=== PATIENT | female | born 2000 | race Caucasian/White ===

== ENCOUNTER → 2020-01-26 10:39 | Outpatient (BNVA) | payer MEDICAID, SELFPAY | PROVIDERS: Visit Provider Nurse Practitioner Women's Health | DX: Z34.90 Encounter for supervision of normal pregnancy, unspecified, unspecified trimester (principal) | CPT/HCPCS: 80053; 81000; 87077; 87086; 87184 ==

== ENCOUNTER → 2020-02-09 11:47 | Outpatient (BNVA) | payer MEDICAID, SELFPAY | PROVIDERS: Visit Provider Obstetrics & Gynecology | DX: Z34.01 Encounter for supervision of normal first pregnancy, first trimester (principal) | CPT/HCPCS: 80307; 81000; 85027; 86592; 86762; 86803; 86850; 86900; 87340; 87806 ==

== ENCOUNTER → 2020-02-24 09:07 | Outpatient (BNVA) | payer MEDICAID, SELFPAY | PROVIDERS: Visit Provider Obstetrics & Gynecology | DX: Z34.01 Encounter for supervision of normal first pregnancy, first trimester (principal) | CPT/HCPCS: 81000; 87491; 87591 ==

== ENCOUNTER → 2020-03-29 13:25 | Outpatient (BNVA) | payer BC, MEDICAID, SELFPAY | PROVIDERS: Visit Provider Nurse Practitioner Women's Health | DX: O99.891 Other specified diseases and conditions complicating pregnancy (principal); R82.71 Bacteriuria; A74.9 Chlamydial infection, unspecified; O98.811 Other maternal infectious and parasitic diseases complicating pregnancy, first trimester; Z3A.00 Weeks of gestation of pregnancy not specified | CPT/HCPCS: 84315; 87077; 87086; 87184; 87491; 87591 ==

== ENCOUNTER → 2020-04-19 13:02 | Outpatient (BNVA) | payer MEDICAID, SELFPAY | PROVIDERS: Visit Provider Obstetrics & Gynecology | DX: Z34.92 Encounter for supervision of normal pregnancy, unspecified, second trimester (principal) | CPT/HCPCS: 76805 ==

== ENCOUNTER → 2020-04-21 13:07 | Outpatient (BNVA) | payer BC, MEDICAID, SELFPAY | PROVIDERS: Visit Provider Obstetrics & Gynecology | DX: O99.891 Other specified diseases and conditions complicating pregnancy (principal); R82.71 Bacteriuria; O99.612 Diseases of the digestive system complicating pregnancy, second trimester; K21.9 Gastro-esophageal reflux disease without esophagitis | CPT/HCPCS: 81000; 87086 ==

== ENCOUNTER → 2020-05-18 10:25 | Outpatient (BNVA) | payer BC, MEDICAID, SELFPAY | PROVIDERS: Visit Provider Obstetrics & Gynecology | DX: Z34.90 Encounter for supervision of normal pregnancy, unspecified, unspecified trimester (principal) | CPT/HCPCS: 81000 ==

== ENCOUNTER → 2020-06-12 12:02 | Outpatient (BNVA) | payer BC, MEDICAID, SELFPAY | PROVIDERS: Visit Provider Obstetrics & Gynecology | DX: O99.891 Other specified diseases and conditions complicating pregnancy (principal); R82.71 Bacteriuria | CPT/HCPCS: 81000; 82950; 85027; 87086 ==

== ENCOUNTER → 2020-06-26 14:43 | Outpatient (BNVA) | payer BC, MEDICAID, SELFPAY | PROVIDERS: Visit Provider Obstetrics & Gynecology | DX: Z34.03 Encounter for supervision of normal first pregnancy, third trimester (principal) | CPT/HCPCS: 81000; 87077; 87086; 87184 ==

== ENCOUNTER → 2020-07-13 08:02 | Outpatient (BNVA) | payer BC, MEDICAID, SELFPAY | PROVIDERS: Visit Provider Obstetrics & Gynecology | DX: Z34.90 Encounter for supervision of normal pregnancy, unspecified, unspecified trimester (principal) | CPT/HCPCS: 81000 ==

== ENCOUNTER → 2020-07-25 14:35 | Outpatient (BNVA) | payer BC, MEDICAID, SELFPAY | PROVIDERS: Visit Provider Nurse Practitioner Women's Health | DX: O99.612 Diseases of the digestive system complicating pregnancy, second trimester (principal); K21.9 Gastro-esophageal reflux disease without esophagitis; R82.71 Bacteriuria; O98.811 Other maternal infectious and parasitic diseases complicating pregnancy, first trimester; A74.9 Chlamydial infection, unspecified; Z3A.00 Weeks of gestation of pregnancy not specified | CPT/HCPCS: 81000; 87086 ==

== ENCOUNTER → 2020-08-07 13:48 | Outpatient (BNVA) | payer BC, MEDICAID, SELFPAY | PROVIDERS: Visit Provider Obstetrics & Gynecology | DX: O98.811 Other maternal infectious and parasitic diseases complicating pregnancy, first trimester (principal); A74.9 Chlamydial infection, unspecified; Z3A.00 Weeks of gestation of pregnancy not specified | CPT/HCPCS: 81000; 87081; 87491; 87591; 87661 ==

== ENCOUNTER 2020-08-14 13:40 | Outpatient (CLI) | payer BC, MEDICAID, SELFPAY ==
[2020-08-14 14:09] VITALS: BP 144/77; PULSE 91
[2020-08-14 14:16] LABS: Basophils # 0.1 10^3/uL (0.0-0.1); Basophils % 0.4 %; Eosinophils # 0.2 10^3/uL (0.0-0.8); Eosinophils % 1.3 %; Hematocrit 34.1 % (37.0-47.0); Hemoglobin 11.1 g/dL (11.5-15.3); Lymphocytes # 1.8 10^3/uL (1.5-6.5); Lymphocytes % 14.3 %; Mean Corpuscular HGB Conc 32.6 g/dL (30.0-36.0); Mean Corpuscular Volume 85.9 fL (81-99); Mean Platelet Volume 9.5 fL (7.4-10.4); Monocytes # 1.2 10^3/uL (0.2-0.9); Monocytes % 9.6 %; Neutrophils # 9.05 10^3/uL (1.8-8.0); Neutrophils % 72.7 %; Nucleated Red Blood Cells % 0 %; Platelet Count 428 10^3/cmm (130-400); Red Blood Count 3.97 10^6/uL (4.1-5.3); Red Cell Distribution Width 13.1 % (12.1-15.1); White Blood Count 12.4 10^3/uL (4.5-13.0)
[2020-08-14 14:19] LABS: Add Urine Microscopic? YES; Bilirubin Urine Neg (Negative); Blood Urine Neg (Negative); Glucose Urine UA Norm (Normal); Ketones Urine Negative (Negative); Leukocyte Esterase Urine 2+ (Negative); Nitrate Urine Negative (Negative); Protein Urine Neg (Negative); Urine Appearance SL Hazy (CLEAR); Urine Color Yellow (Yellow); Urobilinogen Urine Norm (Negative); pH Urine 7 (5-7)
[2020-08-14 14:24] VITALS: BP 142/74; PULSE 82
[2020-08-14 14:24] LABS: Bacteria Urine 3+ /hpf; Squamous Epithelial Cell Urine 0-4 /hpf (0-5)
[2020-08-14 14:25] LABS: RBC Urine 0-4 /hpf (0-2)
[2020-08-14 14:27] LABS: Add Urine Culture? Yes
[2020-08-14 14:28] VITALS: BMI 35.0
[2020-08-14 14:33] VITALS: RESP 16; TEMP 36.3
[2020-08-14 14:35] LABS: Alanine Aminotransferase 13 U/L (0-33); Albumin Level 3.8 g/dL (3.5-5.2); Alkaline Phosphatase 158 IU/L (35-105); Anion Gap 18.3 (5-19); Aspartate Amino Transferase 11 U/L (0-32); Blood Urea Nitrogen 4 mg/dL (6-20); Calcium 9.2 mg/dL (8.5-10.5); Carbon Dioxide 19 mmol/L (22-29); Chloride 103 mmol/L (98-107); Globulin 3.4 g/dL (1.3-4.6); Glomerular Filtration Rate 286.6 mL/min (90-130); Glucose 83 mg/dL (65-115); Osmolality Calculated 278 mOsm/kg (285-295); Potassium 4.3 mmol/L (3.5-5.1); Sodium 136 mmol/L (136-145); Total Bilirubin 0.2 mg/dL (0.15-1.2); Total Protein 7.2 g/dL (6.6-8.7); Uric Acid 2.6 mg/dL (2.4-5.7)
[2020-08-14 14:39] VITALS: BP 140/73; PULSE 86
[2020-08-14 14:42] LABS: UPRO/UCREAT Ratio 0.19 mg/mg CR; Urine Creatinine 77 mg/dL (28-217); Urine Protein Random 15 mg/dL
[2020-08-14 14:54] VITALS: BP 140/73; PULSE 80
--- NOTE | 2020-08-14 14:59 | PC.NURSE ---
Explained bedrest order to patient and patient's mother. They verbalized understanding and will return for NST. Also discussed checking blood pressures at home and patient and mother states they would not be able to do that at this time.
== END 2020-08-14 14:58 | disposition home or self-care (01) ==
LOC: OPOB 13:50 → OBGYN 13:50
PROVIDERS: Visit Provider Obstetrics & Gynecology
DX: O26.899 Other specified pregnancy related conditions, unspecified trimester (principal); Z3A.00 Weeks of gestation of pregnancy not specified; Z03.89 Encounter for observation for other suspected diseases and conditions ruled out
CPT/HCPCS: 36415; 59025; 80053; 81000; 81001; 82570; 84156; 84550; 85025; 87086; 99211

== ENCOUNTER 2020-08-17 10:57 | Outpatient (CLI) | payer BC, MEDICAID, SELFPAY ==
[2020-08-17 11:13] VITALS: BP 128/76; PULSE 107; TEMP 36.3
[2020-08-17 11:17] VITALS: BMI 34.1
[2020-08-17 11:28] VITALS: BP 124/72; PULSE 105
[2020-08-17 11:43] VITALS: BP 117/65; PULSE 108
== END 2020-08-17 11:45 | disposition home or self-care (01) ==
LOC: OPOB 11:06 → OBGYN 11:09
PROVIDERS: Visit Provider Obstetrics & Gynecology
DX: O26.899 Other specified pregnancy related conditions, unspecified trimester (principal); Z3A.00 Weeks of gestation of pregnancy not specified
CPT/HCPCS: 59025; 99211

== ENCOUNTER → 2020-08-24 09:42 | Outpatient (BNVA) | payer BC, MEDICAID, SELFPAY | PROVIDERS: Visit Provider Obstetrics & Gynecology | DX: Z34.03 Encounter for supervision of normal first pregnancy, third trimester (principal) | CPT/HCPCS: 81000; 87635 ==

== ENCOUNTER 2020-08-25 12:38 | Inpatient (IN) | payer BC, MEDICAID, SELFPAY ==
[2020-08-25] VITALS (7 sets, daily range): BP systolic 118–128; BP diastolic 69–84; PULSE 86–102; RESP 18; BMI 33.9
[2020-08-25] MEDS: ampicillin 2,000 MG in sodium chloride 0.9% (plus) 50 ML 100 MG IV (13:39)
[2020-08-25] MEDS: miSOPROStol 100 mcg tablet 25 MCG VAGINAL (13:40)
[2020-08-25] MEDS: dextrose 5%-lactated ringers 1,000 ML 125 ML IV (13:40)
[2020-08-25 15:26] LABS: Basophils # 0.1 10^3/uL (0.0-0.1); Basophils % 0.4 %; Eosinophils # 0.2 10^3/uL (0.0-0.8); Eosinophils % 1.7 %; Hematocrit 34.7 % (37.0-47.0); Hemoglobin 11.3 g/dL (11.5-15.3); Lymphocytes # 1.8 10^3/uL (1.5-6.5); Mean Corpuscular HGB Conc 32.6 g/dL (30.0-36.0); Mean Corpuscular Volume 85.9 fL (81-99); Mean Platelet Volume 10.2 fL (7.4-10.4); Monocytes # 1.1 10^3/uL (0.2-0.9); Neutrophils # 8.76 10^3/uL (1.8-8.0); Neutrophils % 72.6 %; Nucleated Red Blood Cells % 0 %; Platelet Count 461 10^3/cmm (130-400); Red Blood Count 4.04 10^6/uL (4.1-5.3); Red Cell Distribution Width 13.3 % (12.1-15.1); White Blood Count 12.1 10^3/uL (4.5-13.0)
[2020-08-25] MEDS: ampicillin 1,000 MG in sodium chloride 0.9% (plus) 50 ML 100 MG IV ×2 (19:09→23:14)
[2020-08-26] VITALS (86 sets, daily range): BP systolic 107–154; BP diastolic 58–100; PULSE 75–136; RESP 15–18; TEMP 36.2–36.7; O2SAT 96–98
[2020-08-26] MEDS: ampicillin 1,000 MG in sodium chloride 0.9% (plus) 50 ML 100 MG IV ×6 (02:34→21:01)
[2020-08-26] MEDS: oxytocin 30 UNIT/500 ML BAG IV (08:46)
--- NOTE | 2020-08-26 15:36 | P.PN_ITS ---
WOUND CARE COORDINATOR Subjective Subjective: Interval history: The patient had an EASI cath placed overnight. I was unable to use any sort of medication due to uterine hyperstimulation after one dose of cytotec. The catheter came out on its own this morning. Pitocin was begun. She has reached 5 cm dilation and AROM performed with light meconium stained fluid. Labor: Pain Control: tolerating well Dilation (cm): 5 Effacement (%): 80 Station: -1 Amniotic Membrane Status: Ruptured Monitor Mode: External Contraction Pattern: Regular Contraction Intensity: Moderate Status: Category I Vitals/I&O/Wt Last Vital Signs Pulse 98 08/26/20 15:15 Resp 18 08/26/20 13:23 BP 129/78 08/26/20 15:15 08/26/20 08/26/20 08/26/20 06:59 14:59 22:59 Intake Total 150 / 200 1061.267 / 1061.267 Balance 150 / 200 1061.267 / 1061.267 Weight last 48 hrs Weight 204 lb Physical Exam Narrative: EXAM NARRATIVE: The patient is needing to breath through contractions. Epidural has been ordered. Resp: COMMON NORMALS: normal respiratory effort EFFORT & INSPECTION: Yes able to speak in complete sentences Extremity: COMMON NORMALS: no clubbing, cyanosis or edema Data : 08/25/20 13:08 A&P Assessment and plan (1) GBS (group B Streptococcus carrier), +RV culture, currently : Status: Acute (2) Supervision of normal : continue with induction anticipate Status: Acute Qualifiers: Normal : normal first Trimester: third [facility] Qualified Code(s): Z34.03 - Encounter for supervision of normal first , third trimester Attestations Medical Necessity Statement*: she has been admitted in patient Coding Level of Care Code Acute Medical Auditor for Chg Fwd Diagnoses GBS (group B Streptococcus carrier), +RV culture, currently O99.820 Supervision of normal Z34.03 Normal : normal first Trimester: third trimester
[2020-08-26] MEDS: lactated ringers 1,000 ML 999 ML IV (15:46)
--- NOTE | 2020-08-26 16:45 | P.ANES_ITS ---
Anesthesia Procedures Procedure/Date: 08/26/20 Epidural: Time Out Performed: Yes Consents Signed: Procedure Consent Consent: from patient Lumbar Level: L2-L3 Epidural position: sitting Epidural procedure: sterile prep of area, 1% lidocaine to numb the area (5ml), 18 g needle, negative for paresthesia passed, test dose given (3ml), 1.5% xyloca ine 1:200k epi (3ml), placed PCEA, no systemic response, sterile dressing applied, L.U.D. no apparent complications and 0.2% Ropiavacaine @ mls/hr (13ml) Additional Comments: consent obtained. Sterile prep and drape. Loss of resistance, cath placed easily. Tolerated well. Neg test dose.
--- NOTE | 2020-08-26 16:48 | ANES.PREANE2 ---
Pre-Anesthetic Assessment Pre-Anesthetic Assessment: Height/Weight: Height 1.65 m Weight 92.533 kg Pulse Resp BP Pulse Ox 108 H 18 123/72 98 08/26/20 16:44 08/26/20 13:23 08/26/20 16:44 08/26/20 16:39 Preop Diagnosis: labor pain Proposed Procedure: labor epidural Was Beta Chris taken within 24 hours: N/A Was Clonidine taken within 24 hours: N/A Social: Social History: No alcohol and No tobacco Exam: Pre-Anes Outpt Exam: alert and oriented x 3 Airway: Submandibular: WNL Cervical ROM: WNL MP: 1 History/ROS: No significant history except as noted GI: GI: GERD Anesthetic Plan: ASA status: 2 Anesthesia: Anesthesia Evaluation and Regional (specify below) Other: labor epidural Risk of > 500 ml blood loss (7ml/kg in children): No Meds/Allergies Current Medications: Current Medications Generic Name Dose Route Start Last Admin Trade Name Freq PRN Reason Stop Dose Admin Dextrose/Lactated Ringer's 1,000 mls @ 125 m ls/hr 08/25/20 13:00 08/26/20 07:40 Dextrose 5%-Lact ated Ringers IV Infused .Q8H ANNA Infusion Ampicillin Sodium 1,000 mg/ 50 mls @ 100 mls/ hr 08/25/20 17:00 08/26/20 13:27 Sodium Chloride IV 100 mls/hr Q4H ANNA Administration Protocol Oxytocin 30 unit in 500 ml s @ 1 mls/hr 08/26/20 08:45 08/26/20 12:25 Pitocin IV 6 milliunit/min .Q24H ANNA 6 mls/hr Titration Protocol 1 MILLIUNIT/MIN PFSH Anesthesia PFSH: Medical History No pertinent past medical history neghx: htn,dm,thyroid,dvt/pe, herpes ----denies partner with herpes Surgical History No pertinent past surgical history Family History Grandmother Breast cancer Maternal grandmother--- dx age unknown Diabetes Maternal grandmother Denies family history of Colon cancer Ovarian cancer Heart disease Bleeding disorder Hypertension Uterine cancer Thyroid disease Stroke Social History Smoking and tobacco status: never smoked Alcohol intake: never Additional social history: - Tobacco use: Denies Alcohol use: Denies Drug use: Denies Female Reproductive History: : 1 Data Anesthesia CBC & Chem 7: 08/25/20 13:08 Other Labs: Laboratory Results - last 48 hr 08/25/20 13:08 WBC 12.1 RBC 4.04 L Hgb 11.3 L Hct 34.7 L MCV 85.9 MCH 28.0 MCHC 32.6 RDW 13.3 Plt Count 461 H MPV 10.2 Neut % (Auto) 72.6 Lymph % (Auto) 15.0 [place] % (Auto) 9.0 Eos % (Auto) 1.7 Baso % (Auto) 0.4 Neut # (Auto) 8.76 H Lymph # (Auto) 1.8 [place] # (Auto) 1.1 H Eos # (Auto) 0.2 Baso # (Auto) 0.1 Nucleated RBC % (auto) 0 Nucleated RBCs # 0.0 Cardiac Studies: No Data to Display
--- NOTE | 2020-08-26 17:20 | PC.NURSE ---
Patient still complaining of pain, Janki notified and stated they would come assess epidural.
[2020-08-26] MEDS: dextrose 5%-lactated ringers 1,000 ML 125 ML IV (17:35)
[2020-08-26] MEDS: miSOPROStol 200 mcg Tablet 800 MCG PR (22:59)
[2020-08-27] VITALS (26 sets, daily range): BP systolic 112–155; BP diastolic 57–86; PULSE 75–113; RESP 15–16; TEMP 36.2–36.7
[2020-08-27] MEDS: benzocaine-menthol 78 gm Canister 1 SPRAY TOPICAL (00:45)
--- NOTE | 2020-08-27 01:05 | PM.DELIVERY ---
Delivery Note: Date of delivery: August 27, 2020 Pre-delivery diagnoses: iup at 39 3/7 weeks, GBBS + Post-delivery diagnoses: same with shoulder dystocia Procedure: Op report anesthesia: Epidural Delivering Physician: dana Estimated blood loss (mL): 50 Findings: term female in the MELIA presentation with a 1 minute shoulder dystocia Broken umbilical cord after delivery. Pre-Delivery Course: The patient was admitted for induction at term at her request. Delivery: The patient had complete cervical dilation and began to push. The head delivered in the MELIA position over an intact perineum under epidural anesthesia. The head immediately turtled as it was emerging. The patient was placed in Teresa position and I attempted to free the anterior shoulder. I then attempted to deliver the posterior arm, but it was behind the babies back. Next I again attempted to deliver the anterior shoulder and it delivered, followed by the posterior shoulder and the remainder of the baby. As I turned the baby over to suction the nose and mouth, the cord ruptured. The nurse and I both grasped the cord to minimize the bleeding. A cord clamp was placed. The baby was placed onto the mother's abdomen. The placenta delivered spontaneously. It was inspected and found to be intact. Inspection of the perineum revealed bilateral periurethral lacerations that were hemostatic. Estimated blood loss 50 mL. Apgars on baby were 7 at 1 minute and 8 at 5 minutes. Weight of baby is 8 pounds 4 ounces. Mother and baby were stable post delivery. Post-Delivery Status: Baby had copious amounts of fluid delee suctioned from her. She was placed on C-pap and stabilized. She is doing well and with her mother. A&P Assessment and plan (1) GBS (group B Streptococcus carrier), +RV culture, currently : Status: Acute (2) Supervision of normal : Status: Acute Qualifiers: Normal : normal first Trimester: third trimester Qualified Code(s): Z34.03 - Encounter for supervision of normal first , third trimester Coding Level of Care Code Acute Business Center Representative for Chg Fwd Diagnoses GBS (group B Streptococcus carrier), +RV culture, currently O99.820 Supervision of normal Z34.03 Normal : normal first Trimester: third trimester
[2020-08-27] MEDS: prenatal vitamin Capsule 1 CAP PO (08:12)
[2020-08-27] MEDS: docusate sodium 100 mg Capsule PO ×2 (08:12→18:29)
[2020-08-27] MEDS: ibuprofen 800 mg tablet PO ×3 (08:23→20:25)
--- NOTE | 2020-08-27 09:22 | PM.PN ---
Subjective Subjective: Interval history: The patient and baby are doing well this am. She is having normal lochia, pain is well controlled. She is ambulating and tolerating a regular diet. Medications: Reviewed: Yes Vitals/I&O/Wt Last Vital Signs Temp 98.0 F 08/27/20 06:45 Pulse 93 08/27/20 08:18 Resp 15 08/27/20 06:45 BP 121/70 08/27/20 08:18 Pulse Ox 97 08/26/20 19:25 08/26/20 08/27/20 08/27/20 22:59 06:59 14:59 Intake Total 262.8 / 0336.160 5799.933 / 2826.000 Output Total 600 / 600 900 / 1500 Balance -337.2 / 774.067 551.933 / 1326.000 Weight last 48 hrs Weight 204 lb Physical Exam Const: COMMON NORMALS: no acute distress, average body habitus, patient oriented x3, no limitations, healthy appearing, alert and well nourished GENERAL APPEARANCE: cooperative, comfortable, well kempt and well developed ORIENTATION/CONSCIOUSNESS: Yes awake, Yes oriented to person, Yes oriented to place and Yes oriented to time Neck/C-Spine: COMMON NORMALS: full ROM and supple Resp: COMMON NORMALS: normal respiratory effort EFFORT & INSPECTION: Yes able to speak in complete sentences GI: COMMON NORMALS: Soft to palpation and non-tender PALPATION: Yes Soft to palpation Extremity: COMMON NORMALS: no clubbing, cyanosis or edema and no calf tenderness Neuro: COMMON NORMALS: patient oriented x3 SENSORIUM/ORIENTATION: Yes alert, Yes oriented to person, Yes oriented to place and Yes oriented to time Psych: COMMON NORMALS: mental status grossly normal, Normal thought process present, cooperative, normal affect and speech normal APPEARANCE: Yes grossly normal and Yes well kempt ATTITUDE: Yes calm and Yes engaged ACTIVITY/MOTOR BEHAVIOR: Yes appropriate eye contact SPEECH: Yes normal speech THOUGHT PROCESS: Normal thought process present Urinary Catheter Management^: Huynh: Cath Placed During This Visit: yes, but has since been removed by the nurse Reason for Continuing Indwelling Catheter: Other Urinary Catheter Date of Insertion: 08/26/20 Urinary Catheter Time of Insertion: 16:49 Date Urinary Catheter Removed: 08/26/20 Time Urinary Catheter Discontinued: 22:44 Data : 08/25/20 13:08 A&P Assessment and plan (1) GBS (group B Streptococcus carrier), +RV culture, currently : doing well plan for discharge tomorrow Status: Acute (2) Supervision of normal : Status: Acute Qualifiers: Normal : normal first Trimester: third trimester Qualified Code(s): Z34.03 - Encounter for supervision of normal first , third trimester Attestations Medical Necessity Statement*: The patient had a vaginal delivery. she has already been here greater than two midnights. Coding Level of Care Code Acute Ophthalmic Technician Apprentice for Chg Fwd Diagnoses GBS (group B Streptococcus carrier), +RV culture, currently O99.820 Supervision of normal Z34.03 Normal : normal first Trimester: third trimester
[2020-08-27 12:10] LABS: Hematocrit 31.1 % (37.0-47.0); Hemoglobin 10.1 g/dL (11.5-15.3); Mean Corpuscular HGB Conc 32.5 g/dL (30.0-36.0); Mean Corpuscular Hemoglobin 27.8 pg (28.0-34.0); Mean Corpuscular Volume 85.7 fL (81-99); Mean Platelet Volume 9.7 fL (7.4-10.4); Platelet Count 353 10^3/cmm (130-400); Red Blood Count 3.63 10^6/uL (4.1-5.3); Red Cell Distribution Width 13.8 % (12.1-15.1)
[2020-08-28 04:00] VITALS: BP 120/75; PULSE 72; RESP 15; TEMP 36.6; O2SAT 97
--- NOTE | 2020-08-28 08:20 | PM.DCS ---
Discharge Providers Date of Admission: 08/26/20 08:30 Date of Discharge: August 28, 2020 Attending Provider at Admission: Nicol Sparrow MD Attending Provider at Discharge: Nicol Sparrow MD Diagnoses at Discharge Discharge Diagnosis (1) GBS (group B Streptococcus carrier), +RV culture, currently : Status: Acute (2) Supervision of normal : Status: Acute Qualifiers: Normal : normal first Trimester: third trimester Qualified Code(s): Z34.03 - Encounter for supervision of normal first , third trimester Reason for Visit Reason for Visit: INDUCTION Hospital Course Hospital Course: The patient was admitted for induction at term, per patient request. She had spontaneous vaginal delivery. she did well and was ready for discharge on day #2 Physical Exam Narrative: EXAM NARRATIVE: The patient doing well this am. She doesn't have any complaints Resp: COMMON NORMALS: normal respiratory effort EFFORT & INSPECTION: Yes able to speak in complete sentences GI: COMMON NORMALS: Soft to palpation and non-tender PALPATION: Yes Soft to palpation Extremity: COMMON NORMALS: no clubbing, cyanosis or edema and no calf tenderness Psych: COMMON NORMALS: mental status grossly normal, Normal thought process present, cooperative, normal affect, speech normal and activity/motor behavior normal APPEARANCE: Yes grossly normal ATTITUDE: Yes calm and Yes engaged ACTIVITY/MOTOR BEHAVIOR: Yes appropriate eye contact SPEECH: Yes normal speech THOUGHT PROCESS: Normal thought process present Urinary Catheter Management^: Huynh: Cath Placed During This Visit: yes, but has since been removed by the nurse Reason for Continuing Indwelling Catheter: Other Urinary Catheter Date of Insertion: 08/26/20 Urinary Catheter Time of Insertion: 16:49 Date Urinary Catheter Removed: 08/26/20 Time Urinary Catheter Discontinued: 22:44 Discharge Data Data Completed and Pending: Labs from last 24 hours 08/27/20 11:45 WBC 15.0 H RBC 3.63 L Hgb 10.1 L Hct 31.1 L MCV 85.7 MCH 27.8 L MCHC 32.5 RDW 13.8 Plt Count 353 MPV 9.7 Vitals: Last Vital Signs Temp 97.9 F 08/28/20 04:00 Pulse 72 08/28/20 04:00 Resp 15 08/28/20 04:00 BP 120/75 08/28/20 04:00 Pulse Ox 97 08/28/20 04:00 Discharge Plan Discharge Patient Disposition: Home Condition: Stable Prescriptions: Continued prenat.vits,noble,[id number] Tablet 1 tab PO DAILY Qty: 90 RF: 3 ferrous sulfate 325 mg (65 mg iron) tablet 325 mg PO BID Qty: 60 RF: 5 omeprazole 20 mg capsule,delayed release(DR/EC) 20 mg PO DAILY Qty: 30 RF: 3 Discharge Orders: Discharge Order (Routine); Ordered 08/28/20 Ordered By: Nicol Sparrow Referrals: Nicol Sparrow MD [Physician] - 6 Weeks (Please keep scheduled appointment on September 11, 2020 at 12:45 pm for mom's 2 week check up and on October 09, 2020 at 12:45 pm for 6 week follow up, both with Dr. Sparrow. ) Discharge Diet: Regular Discharge Activity: Limit activity as instructed Patient Instructions: Vitamins (By mouth), Pre-eclampsia and Eclampsia (DC), OB Discharge Report, OB Food/Drug Interaction Guide, Opioid Safety, OB Proud Parent Packet, OB Vaginal Deliveries - [facility], Abnormal Bleeding Discharge Attestations Time Spent in Discharge Care*: less than 30 min Quality Metrics Clinical Quality Measures During this hospital stay, did patient experience: None Coding Level of Care Code Acute Chg FW DC note Exam Expanded Problem Focused Diagnoses GBS (group B Streptococcus carrier), +RV culture, currently O99.820 Supervision of normal Z34.03 Normal : normal first Trimester: third trimester
[2020-08-28] MEDS: benzocaine-menthol 78 gm Canister 1 SPRAY TOPICAL (08:47)
[2020-08-28] MEDS: docusate sodium 100 mg Capsule PO (08:48)
[2020-08-28] MEDS: prenatal vitamin Capsule 1 CAP PO (08:48)
[2020-08-28] MEDS: pantoprazole DR 40 mg Tablet PO (08:48)
[2020-08-28] MEDS: ibuprofen 800 mg tablet PO (08:48)
[2020-08-28 11:00] VITALS: BP 127/83; PULSE 65; RESP 18; TEMP 36.7; O2SAT 98
[2020-08-28 12:32] VITALS: BP 125/78; PULSE 93; RESP 15; TEMP 36.6
== END 2020-08-28 12:37 | disposition home or self-care (01) | DRG 807 ==
PROVIDERS: Admitting Provider Obstetrics & Gynecology; Visit Provider Obstetrics & Gynecology
DX: O99.824 Streptococcus B carrier state complicating childbirth (principal); Z37.0 Single live birth; O66.0 Obstructed labor due to shoulder dystocia; O77.0 Labor and delivery complicated by meconium in amniotic fluid; O99.02 Anemia complicating childbirth; D64.9 Anemia, unspecified; Z3A.39 39 weeks gestation of pregnancy; O75.89 Other specified complications of labor and delivery; K21.9 Gastro-esophageal reflux disease without esophagitis
CPT/HCPCS: 36415; 51702; 59409; 85025; 85027; G0378; G0379; J0290; J2795

== ENCOUNTER → 2021-06-12 15:07 | Outpatient (BNVA) | payer BC, MEDICAID, SELFPAY | PROVIDERS: PCP Registered Nurse; Referring Provider Nurse Practitioner Family; Visit Provider Surgery | DX: K82.9 Disease of gallbladder, unspecified (principal); Z20.822 Contact with and (suspected) exposure to COVID-19 | CPT/HCPCS: 87635 ==

== ENCOUNTER 2021-06-21 07:31 | Day surgery (SDC) | payer BC, MEDICAID, SELFPAY ==
[2021-06-15 16:38] VITALS: BMI 27.3
[2021-06-21] VITALS (10 sets, daily range): BP systolic 104–132; BP diastolic 69–90; PULSE 56–109; RESP 16–22; TEMP 36.1–36.5; O2SAT 98–100
[2021-06-21 07:54] LABS: OR HCG Qualitative Urine Negative (Negative)
[2021-06-21] MEDS: sodium chloride 0.9% 1,000 ML 30 ML IV ×2 (07:59→09:30)
--- NOTE | 2021-06-21 08:00 | P.ANESASSM_ITS ---
Pre-Anesthetic Assessment Height/Weight: Height 1.65 m Weight 74.389 kg Temp Pulse Resp BP Pulse Ox 97.7 F 90 18 128/88 98 06/21/21 07:49 06/21/21 07:49 06/21/21 07:49 06/21/21 07:49 06/21/21 07:49 Preop Diagnosis: Cholelithiasis Operation Date: 06/21/21 09:00 Proposed Procedures p Laparoscopic Cholecystectomy k82.9(Not Applicable) - Henry Calix MD Familial anesthetic complications: no family history of issues patient has personally never had anesthesia. Last intake: Intake Last Liquid Date 06/20/21 Last Liquid Time 23:30 Last Solid Date 06/20/21 Last Solid Time 21:30 Social No alcohol and No tobacco Exam alert, oriented x 3, clear to auscultation bilaterally and regular rate & rhythm Airway Submandibular: within normal limits Cervical ROM: within normal limits Mallampati: Class I Dentition: full Pulmonary None reported CV/HEM None reported None reported Hepatic None reported GI Gastroesophageal Reflux Disease Metabolic None reported Musc/skel None reported Neuropsych Anxiety Anesthetic Plan ASA status: 1 Anesthesia: General Medications/Allergies Home Medications Medication Instructions Recorded Confirmed Last Taken Type famotidine 20 mg tablet 20 mg PO BID 06/12/21 06/21/21 06/20/21 History ondansetron 4 mg disintegrating 4 mg PO Q8H PRN 06/15/21 06/21/21 06/20/21 History tablet Allergies Allergy/AdvReac Type Severity Reaction Status Date / Time No Known Allergies Allergy Verified 06/21/21 07:46 [facility] Anesthesia Medical History No pertinent past medical history neghx: htn,dm,thyroid,dvt/pe, herpes ----denies partner with herpes Surgical History No pertinent past surgical history Family History Grandmother Breast cancer Maternal grandmother--- dx age unknown Diabetes Maternal grandmother Denies family history of Colon cancer Ovarian cancer Heart disease Bleeding disorder Hypertension Uterine cancer Thyroid disease Stroke Social History Smoking and tobacco status: never smoked Alcohol intake: never Additional social history: - Tobacco use: Denies Alcohol use: Denies Drug use: Denies Data Anesthesia Cardiac Studies: No Data to Display
--- NOTE | 2021-06-21 08:10 | W.PM.OPSFHP ---
Same Day Surgery H&P Indication for Procedure/HPI DATE OF PROCEDURE: June 21, 2021 CHIEF COMPLAINT/INDICATIONFOR SURGICAL PROCEDURE: cholecystectomy PREOP DIAGNOSIS: Cholelithiasis PLANNED PROCEDURE: Operation Date: 06/21/21 09:00 Proposed Procedures p Laparoscopic Cholecystectomy k82.9(Not Applicable) - Henry Calix MD Medications/Allergies* Home Medications Medication Instructions Recorded Confirmed Type famotidine 20 mg tablet 20 mg PO BID 06/12/21 06/21/21 History ondansetron 4 mg disintegrating 4 mg PO Q8H PRN 06/15/21 06/21/21 History tablet Allergies/Adverse Reactions Allergy/AdvReac Type Severity Reaction Status Date / Time No Known Allergies Allergy Verified 06/21/21 07:46 Current Medications: Generic Name Dose Route Start Last Admin Trade Name Freq PRN Reason Stop Dose Admin Sodium Chloride 1,000 mls @ 30 mls/hr 06/21/21 07:45 06/21/21 07:59 Sodium Chloride 0.9% IV 06/22/21 07:44 30 mls/hr .Q24H ANNA Administration Pertinent History/Comorbid Conditions* Medical History (Updated 09/15/20 @ 11:56 by Nicol Sparrow MD) No pertinent past medical history neghx: htn,dm,thyroid,dvt/pe, herpes ----denies partner with herpes Surgical History (Updated 09/22/19 @ 08:44 by Xochilt Maria APN, BIBIANA) No pertinent past surgical history Family History (Updated 01/26/20 @ 11:00 by Danielle Barron) Diabetes Grandmother Maternal grandmother Breast cancer Grandmother Maternal grandmother--- dx age unknown Denies family history of Colon cancer Ovarian cancer Heart disease Bleeding disorder Hypertension Uterine cancer Thyroid disease Stroke Social History Smoking and tobacco status: never smoked Alcohol intake: never Additional social history: - Tobacco use: Denies Alcohol use: Denies Drug use: Denies Pertinent Exam Findings alert, oriented x 3 and regular rate & rhythm Recommendations Surgery/Procedure today Coding Level of Care Code Acute Pattern Grader for Contreras Coombs
--- NOTE | 2021-06-21 09:25 | PM.OP ---
Operative Report Date of procedure: June 21, 2021 Pre-op diagnosis: Cholelithiasis Post-op diagnosis: same Procedure done: Laparoscopic cholecystectomy Specimens removed/disposition: Gallbladder Surgeon: Henry Calix Anesthesia: General Condition: stable Disposition: PACU Procedure: The patient was taken to the operating room and was intubated under general anesthesia. After the antibiotic had been administered, the abdomen was prepped and draped in a sterile manner. Using a #15 blade, a 1 centimeter infraumbilical curvilinear incision was made and using an open Kit technique the peritoneal cavity was entered. A 10 millimeter port was placed and 15 millimeters of pneumoperitoneum was created. A 10 millimeter, 30 degrees scope was then introduced. Three 5 millimeter ports were placed in the epigastric, midclavicular and the anterior axillary line two fingerbreadths below the costal margin on the right side under the direct visualization. Ratcheted forceps were introduced into the lateral most port and was used to retract the fundus of the gallbladder cephalad and using forceps the infundibulum of the gallbladder was retracted laterally. The omentum was adherent to the fundus and the body of the gallbladder which was peeled away. Using L-hook cautery the peritoneum overlying the Calot's triangle was opened medially and laterally until the cystic duct and the cystic artery were skeletonized. Dissection was carried along the body of the gallbladder and after ensuring critical view of safety, 4 clips applied on the cystic duct and 3 clips applied on the cystic artery and cut leaving, 3 clips on the remaining portion of the duct and 2 clips on the remaining portion of the artery. The rest of the gallbladder was dissected off the liver using L-hook cautery. There was no bleeding or bile leaking noted from the gallbladder fossa and the clips appeared to be in place. An EndoCatch bag was introduced to remove the gallbladder. All the ports were removed under direct visualization and there was no bleeding noted from the port sites. The fascia of the umbilicus was closed using [id number] 0 Vicryl sutures and the subcutaneous tissue was approximated using 3-0 Vicryl sutures. The skin at all four ports were closed using 4-0 Monocryl and Dermabond. A total of 10 millimeters of 0.5% Marcaine was infiltrated around the port sites. The patient was stable throughout the procedure.
--- NOTE | 2021-06-21 09:36 | SUR.PHASEI ---
0930: patient arrives into pacu. oral Airway taken out by curing supervisor. patient is asleep. simple mask placed with o2 at 6l. abd soft. dermabond to sites.
--- NOTE | 2021-06-21 09:40 | SUR.PHASEI ---
patient on room air. sat remains at 100%. pt still asleep
[2021-06-21] MEDS: ondansetron 2 mg/ML SDV 2 mL 4 MG IVP (09:50)
[2021-06-21] MEDS: fentaNYL 50 mcg/mL INJ 2mL IVP (09:53)
[2021-06-21] MEDS: HYDROcodone-acetaminophen 5-325 mg Tablet 1 TAB PO (10:36)
--- NOTE | 2021-06-21 14:39 | ANE.PACU2 ---
Inpatient post-anesthesia follow up: Airway intact: Yes Vital signs: Temperature 97.0 F Pulse Rate 90 Respiratory Rate 16 Blood Pressure 116/87 Pulse Oximetry 98 Oxygen Delivery Me thod Room Air Oxygen Flow Rate 6 Fraction of Inspir ed Oxygen Hydration adequate: Yes Nausea and vomiting: No Pain level: 2 Mental status: Baseline
== END 2021-06-21 10:55 | disposition home or self-care (01) ==
PROVIDERS: Anesthesiology; PCP Registered Nurse; Visit Provider Surgery
PROC: 0FT44ZZ Resection of Gallbladder, Percutaneous Endoscopic Approach (ICD-10-PCS; CPT 47562; principal; 2021-06-21 09:00)
DX: K80.10 Calculus of gallbladder with chronic cholecystitis without obstruction (principal)
CPT/HCPCS: 47562; 81025; 84703; 88304; J0690; J1100; J1200; J1885; J2250; J2405; J2704; J2710; J3010; J3490; J7030

== ENCOUNTER → 2021-07-03 09:28 | Outpatient (BNVA) | payer BC, MEDICAID, SELFPAY | PROVIDERS: PCP Registered Nurse; Visit Provider Surgery | DX: Z98.890 Other specified postprocedural states (principal); Z90.49 Acquired absence of other specified parts of digestive tract ==

== ENCOUNTER 2024-07-09 18:25 | Outpatient (CLI) | payer BC, MEDICAID, SELFPAY ==
[2024-07-09 18:25] VITALS: BMI 29.8
[2024-07-09 18:49] VITALS: BP 115/71; PULSE 105
[2024-07-09 19:04] VITALS: BP 107/65; PULSE 105
[2024-07-09 19:19] VITALS: BP 104/61; PULSE 94
[2024-07-09 19:21] LABS: Nitrazine Paper, PH Inconclusive
[2024-07-09 19:31] LABS: Actim Prom Negative
[2024-07-09 19:34] VITALS: BP 106/62; PULSE 92
[2024-07-09 19:46] VITALS: BP 106/62; PULSE 92; RESP 16; TEMP 36.7; O2SAT 98
== END 2024-07-09 19:47 | disposition home or self-care (01) ==
LOC: OPOB 18:30 → OBGYN 18:30
PROVIDERS: PCP Registered Nurse; Visit Provider Family Medicine
DX: O26.899 Other specified pregnancy related conditions, unspecified trimester (principal); Z3A.00 Weeks of gestation of pregnancy not specified; N89.8 Other specified noninflammatory disorders of vagina
CPT/HCPCS: 59025; 83986; 84112; 99211

== ENCOUNTER 2024-08-11 04:20 | Outpatient (CLI) | payer BC, MEDICAID, SELFPAY ==
[2024-08-11 04:30] VITALS: BMI 31.2
[2024-08-11 04:32] VITALS: BP 122/75; PULSE 109
[2024-08-11 04:46] VITALS: BP 110/63; PULSE 105
[2024-08-11 04:56] VITALS: BP 108/58; PULSE 101
[2024-08-11 05:48] LABS: Nitrazine Paper, PH Negative
== END 2024-08-11 05:02 | disposition home or self-care (01) ==
LOC: OPOB 04:26 → OBGYN 04:28
PROVIDERS: PCP Registered Nurse; Visit Provider Family Medicine
DX: O26.899 Other specified pregnancy related conditions, unspecified trimester (principal); Z3A.00 Weeks of gestation of pregnancy not specified; N89.8 Other specified noninflammatory disorders of vagina
CPT/HCPCS: 59025; 83986; 99211

== ENCOUNTER 2024-08-22 11:13 | Outpatient (CLI) | payer BC, MEDICAID, SELFPAY ==
[2024-08-22 11:13] VITALS: BMI 30.4
[2024-08-22 11:26] VITALS: BP 126/88; PULSE 115
[2024-08-22 11:41] VITALS: BP 117/75; PULSE 107
[2024-08-22 11:56] VITALS: BP 117/76; PULSE 101
[2024-08-22 12:08] LABS: Bilirubin Urine Negative (Negative); Blood Urine Negative (Negative); Glucose Urine UA Negative (Normal); Ketones Urine Negative (Negative); Leukocyte Esterase Urine Trace (Negative); Nitrate Urine Negative (Negative); Protein Urine Negative (Negative); Specific Gravity, Urine 1.002 (1.005-1.030); Urine Appearance Clear (CLEAR); Urine Color Yellow (Yellow); Urobilinogen Urine 0.2 mg/dL (Negative); pH Urine 6.5 (5-7)
[2024-08-22 12:11] VITALS: BP 107/58; PULSE 90
[2024-08-22 12:13] LABS: Bacteria Urine Trace /hpf; Hyaline Casts Urine 0-4 /lpf; RBC Urine 0-2 /hpf (0-2); Squamous Epithelial Cell Urine 0-5 /hpf (0-5); WBC Urine 0-5 /hpf (0-5)
== END 2024-08-22 12:30 | disposition home or self-care (01) ==
LOC: OPOB 11:14 → OBGYN 11:15
PROVIDERS: PCP Registered Nurse; Visit Provider Family Medicine
DX: O26.899 Other specified pregnancy related conditions, unspecified trimester (principal); Z3A.00 Weeks of gestation of pregnancy not specified; R51.9 Headache, unspecified; R10.30 Lower abdominal pain, unspecified
CPT/HCPCS: 59025; 81001; 99211

== ENCOUNTER 2024-09-07 23:54 | Inpatient (IN) | payer BC, MEDICAID, SELFPAY ==
[2024-09-07 22:20] LABS: Basophils % 0.3 %; Eosinophils % 0.1 %; Hematocrit 33.2 % (36-47); Lymphocytes # 1.7 10^3/uL (0.8-4.8); Lymphocytes % 11.8 %; Mean Corpuscular HGB Conc 31.9 g/dL (30-55); Mean Corpuscular Hemoglobin 24.4 pg (27-33); Mean Corpuscular Volume 76.3 fl (85-98); Mean Platelet Volume 10.1 fL (7.4-10.4); Monocytes # 0.9 10^3/uL (0.2-0.9); Monocytes % 6.1 %; Neutrophils # 11.82 10^3/uL (1.8-7.7); Neutrophils % 80.5 %; Nucleated Red Blood Cells % 0 %; Platelet Count 435 10^3/cmm (157-399); Red Blood Count 4.35 10^6/uL (3.85-5.65); Red Cell Distribution Width 16.2 % (12.1-15.1)
[2024-09-07 22:27] VITALS: BP 128/73; PULSE 100
[2024-09-07] MEDS: sodium chloride 0.9% 1,000 ML 999 ML IV (23:30)
[2024-09-08] VITALS (17 sets, daily range): BP systolic 103–140; BP diastolic 60–92; PULSE 80–112; RESP 16–17; TEMP 36.5–36.9; O2SAT 95–98
[2024-09-08] MEDS: oxytocin 30 UNIT/500 ML BAG 600 UNIT IV (00:06)
--- NOTE | 2024-09-08 00:15 | P.HPUD_ITS ---
Labor & Delivery H&P Update Date of Procedure: September 08, 2024 Date H&P Performed: 09/08/24 Changes to previous documentation: The patient was dilated to 4 cm and sourav consistently upon arrival at the hospital Admission Diagnosis: 1. 23-year-old 2 para 1-0-0-1 at 40 weeks estimated gestational age in active labor 2. Infant with known cleft lip and probable cleft palate Planned procedure: Spontaneous vaginal delivery Other information: The patient is a patient who has received care by Dr. Kaur during her . She was seen today by Dr. Addi Armando covering for Dr. Kaur. During the office visit today she was noted to be 2 cm dilated. When she arrived to the hospital with contractions she was noted to be 4 cm dilated. Her was notable for having an with unknown cleft lip and probable cleft palate. Otherwise her was relatively unremarkable. Her blood type was a positive. Her antibody screen was negative. She passed her 3-hour glucose screen. She was GBS negative. Her VDRL was nonreactive hepatitis B, HIV, chlamydia, gonorrhea were negative. She is rubella immune. Her HCV was also negative the rest of her labs were obtained in the first trimester with the [facility] in [place] in [place]. Related Problem List Diagnoses (1) 40 weeks gestation of : (2) Fetus with suspected cleft lip and palate, antepartum: A&P Assessment and plan (1) 40 weeks gestation of : I anticipate routine labor. Pediatrics will be requested to be available at time of delivery in case there are any other anomalies need to be addressed. Status: Acute (2) Fetus with suspected cleft lip and palate, antepartum: Status: Acute PDMP PDMP Reviewed: Not Reviewed
--- NOTE | 2024-09-08 00:22 | PM.DELIVERY ---
Delivery Note: Date of delivery: September 08, 2024 Pre-delivery diagnoses: 23-year-old 2 para 1-0-0-1 at 40 weeks estimated gestational age presenting in active labor Post-delivery diagnoses: Status post spontaneous vaginal delivery Procedure: Spontaneous vaginal delivery Delivering Physician: Ross George Estimated blood loss (mL): 100 Pre-Delivery Course: The patient presented to the hospital in active labor. She progressed to complete over several hours. An amniotomy was performed. Delivery: DELIVERY: The patient progressed to complete without difficulty. She delivered a male with a weight of 3890 g with Apgars of 8, 8. The baby was delivered from the MELIA position. The baby's mouth and nose were suctioned at the site of the perineum. The baby was then completely delivered and placed on the mother's abdomen. The cord was then clamped and cut. There was no nuchal cord. There was terminal meconium. The placenta and 3 vessel cord were delivered intact shortly thereafter. The perineum and vaginal vault were carefully examined. A small first-degree laceration was noted on her right perineal area. No repair was required. Both the mother and the baby were in stable condition. The baby is noted to have a cleft lip and a minor cleft palate Post-Delivery Status: Good History History History 2 Term 1 0 Miscarriages/Ectopic 0 Living Children 1 A&P Assessment and plan (1) Spontaneous vaginal delivery: I anticipate routine care (2) 40 weeks gestation of : (3) Fetus with suspected cleft lip and palate, antepartum: PDMP PDMP Reviewed: Not Reviewed Coding Level of Care Code Acute Code for Chg Fwd Diagnoses Spontaneous vaginal delivery O80 40 weeks gestation of Z3A.40 Fetus with suspected cleft lip and palate, antepartum O35.AXX0
[2024-09-08] MEDS: miSOPROStol 200 mcg Tablet 800 MCG PR (01:30)
[2024-09-08] MEDS: tranexamic acid 1,000 MG/100 ML PREMIX 600 MG IV (01:32)
[2024-09-08] MEDS: benzocaine-menthol 78 gm Canister 1 SPRAY TOPICAL (02:30)
[2024-09-08] MEDS: PRENATAL VIT NO.130/IRON/FOLIC 1 EACH TABLET PO (08:04)
[2024-09-08] MEDS: docusate sodium 100 mg Capsule PO ×2 (08:05→20:23)
[2024-09-08] MEDS: ibuprofen 800 mg tablet PO ×3 (08:05→20:23)
[2024-09-08] MEDS: HYDROcodone-acetaminophen 5-325 mg Tablet PO (08:39)
[2024-09-08 14:43] LABS: Hematocrit 26.4 % (36-47); Mean Corpuscular HGB Conc 31.8 g/dL (30-55); Mean Corpuscular Hemoglobin 24.4 pg (27-33); Mean Corpuscular Volume 76.7 fl (85-98); Platelet Count 354 10^3/cmm (157-399); Red Blood Count 3.44 10^6/uL (3.85-5.65); Red Cell Distribution Width 16.2 % (12.1-15.1); White Blood Count 12.87 10^3/uL (3.29-11.43)
--- NOTE | 2024-09-09 07:47 | PM.OBGYDC ---
Discharge Providers [employer]ING [employer]INE[employer] Date of Admission: 09/07/24 23:54 Date of Discharge: 09/09/24 Attending Provider at Admission: Ross George MD Attending Provider at Discharge: Ross George MD Primary Care Provider: BENNETT Nelson Diagnoses at Discharge Discharge Diagnosis (1) Spontaneous vaginal delivery: Status: Acute (2) 40 weeks gestation of : Status: Acute (3) Fetus with suspected cleft lip and palate, antepartum: Status: Acute Reason for Visit Reason for Visit: contractions, bloody show Hospital Course Hospital Course The patient presented to the hospital in active labor. She progressed to complete and had an unremarkable vaginal delivery of a healthy infant with a known cleft lip and palate. There were no significant tears. There were no other complications during the delivery. The patient's course has been unremarkable. Her bleeding has been within normal limits. Her pain has been well-controlled. There have been no concerns. Information Peripartum Data: Infant Delivery Method: Vaginal Physical Exam Narrative: The patient is alert. She appears comfortable. Her heart has a regular rate and rhythm with no murmurs appreciated. Lungs are clear to auscultation bilaterally. Her fundus is firm and below the umbilicus. History History History 2 Term 1 0 Miscarriages/Ectopic 0 Living Children 1 Discharge Data Studies Completed and Pending Laboratory Results WBC 12.87 10^3/uL (3.29-11.43) H 09/08/24 14:30 RBC 3.44 10^6/uL (3.85-5.65) L 09/08/24 14:30 Hgb 8.40 g/dL (11.27-16.99) L 09/08/24 14:30 Hct 26.4 % (36-47) L 09/08/24 14:30 MCV 76.7 fl (85-98) L 09/08/24 14:30 MCH 24.4 pg (27-33) L 09/08/24 14:30 MCHC 31.8 g/dL (30-55) 09/08/24 14:30 RDW 16.2 % (12.1-15.1) H 09/08/24 14:30 Plt Count 354 10^3/cmm (157-399) 09/08/24 14:30 MPV 10.0 fL (7.4-10.4) 09/08/24 14:30 Neut % (Auto) 80.5 % 09/07/24 21:52 Lymph % (Auto) 11.8 % 09/07/24 21:52 [place] % (Auto) 6.1 % 09/07/24 21:52 Eos % (Auto) 0.1 % 09/07/24 21:52 Baso % (Auto) 0.3 % 09/07/24 21:52 Neut # (Auto) 11.82 10^3/uL (1.8-7.7) H 09/07/24 21:52 Lymph # (Auto) 1.7 10^3/uL (0.8-4.8) 09/07/24 21:52 [place] # (Auto) 0.9 10^3/uL (0.2-0.9) 09/07/24 21:52 Eos # (Auto) 0.0 10^3/uL (0.0-0.8) 09/07/24 21:52 Baso # (Auto) 0.0 10^3/uL (0.0-0.1) 09/07/24 21:52 Nucleated RBC % (auto) 0 % 09/07/24 21:52 Nucleated RBCs # 0.0 /100WBC 09/07/24 21:52 Blood Type A Positive 09/07/24 21:52 Rho(D) Type Rh positive 09/07/24 21:52 Antibody Screen Negative 09/07/24 21:52 Vitals Last Vital Signs Temp 98.2 F 09/08/24 22:24 Pulse 82 09/08/24 22:24 Resp 17 09/08/24 22:24 BP 113/76 09/08/24 22:24 Pulse Ox 97 09/08/24 22:24 O2 Del Method Room Air 09/08/24 22:24 Results Labs OB ([facility]): Blood Type A Positive 09/07/24 Antibody Screen Negative 09/07/24 Hct, (36-47) 26.4 % L 09/08/24 Hgb, (11.27-16.99) 8.40 g/dL L 09/08/24 Rho(D) Type Rh positive 09/07/24 Plt Count, (157-399) 354 10^3/cmm 09/08/24 Discharge Plan Discharge Patient Disposition: Home Condition: Stable Prescriptions: New ibuprofen 800 mg Tablet 800 mg PO TID Qty: 45 0RF Vitamin 27 mg iron- 800 mcg Tablet 1 tab PO DAILY Qty: 90 0RF Discharge Orders: Discharge Order (Routine); Ordered 09/09/24 Ordered By: Ross George Referrals: Ross George MD [Physician, Family Practice] Ketty Kaur MD [Physician, Family Practice] - 6 Weeks Discharge Diet: Usual diet Discharge Activity: Limit activity as instructed Patient Instructions: Depression (DC), Opioid Safety (DC), Preeclampsia and Eclampsia After Delivery (GEN), Hemorrhage (DC), OB Discharge Report, OB Food/Drug Interaction Guide, OB Care at Home, Opioid Safety, OB Vaginal Deliveries, Abnormal Bleeding Discharge Attestations [employer]URING [employer]INEER Time Spent in Discharge Care*: less than 30 min Coding Level of Care Code Acute Code for Chg Fwd Diagnoses Spontaneous vaginal delivery O80 40 weeks gestation of Z3A.40 Fetus with suspected cleft lip and palate, antepartum O35.AXX0
[2024-09-09] MEDS: docusate sodium 100 mg Capsule PO (08:20)
[2024-09-09 08:21] VITALS: BP 110/78; PULSE 80; RESP 17; TEMP 36.3; O2SAT 97
[2024-09-09] MEDS: ibuprofen 800 mg tablet PO (08:21)
[2024-09-09] MEDS: PRENATAL VIT NO.130/IRON/FOLIC 1 EACH TABLET PO (08:21)
== END 2024-09-09 08:28 | disposition home or self-care (01) | DRG 807 ==
PROVIDERS: Absent Provider Family Medicine; Admitting Provider Family Medicine; PCP Registered Nurse; Visit Provider Family Medicine
DX: O48.0 Post-term pregnancy (principal); Z37.0 Single live birth; Z3A.40 40 weeks gestation of pregnancy; O35.AXX0 Maternal care for other (suspected) fetal abnormality and damage, fetal facial anomalies, not applicable or unspecified; O77.0 Labor and delivery complicated by meconium in amniotic fluid; O70.0 First degree perineal laceration during delivery
CPT/HCPCS: 36415; 59025; 59409; 85025; 85027; 86850; 86900; 99211; J2590; J7030; J9999